=== PATIENT | female | born 2000 | race Caucasian/White ===

== ENCOUNTER 2023-09-09 21:23 | Emergency (ER) | payer OTHER, SELFPAY ==
[2023-09-09 21:28] VITALS: BP 112/78
[2023-09-09 22:07] LABS: % Basophils 0.4 % (0-2); % Eosinophils 4.2 % (0-6); % Immature Granulocytes 0.1 % (0-0.5); % Lymphocytes 28.2 % (20.5-51.1); % Monocytes 6.4 % (1.7-9.3); % Neutrophils 60.7 % (42.2-75.2); Absolute Eosinophils 0.4 10^3/uL (0-0.7); Absolute Lymphocytes 2.5 10^3/uL (1.2-3.4); Absolute Monocytes 0.6 10^3/uL (0.1-0.6); Absolute Neutrophils 5.4 10^3/uL (1.4-6.5); Hematocrit 39.8 % (37.0-47.0); Hemoglobin 13.7 g/dL (12.0-16.0); Mean Corp Hgb Conc. 34.4 g/dL (33.0-37.0); Mean Corpuscular Hgb 29.1 pg (27.0-31.0); Mean Corpuscular Volume 84.7 fL (81.0-99.0); Mean Platelet Volume 9.5 fL (7.4-10.4); Nucleated Red Blood Cells % 0 %; Platelet Count 302 10^3/uL (130-400); Red Cell Dist. Width 11.9 % (11.5-14.5); White Blood Cell Count 8.9 10^3/uL (4.8-10.8)
[2023-09-09 22:17] LABS: HCG, Serum Qualitative Screen Negative
[2023-09-09 22:26] LABS: ALT (SGPT) 26 U/L (0-35); AST (SGOT) 28 U/L (14-36); Albumin 4.6 g/dl (3.5-5.0); Alkaline Phosphatase 59 U/L (38-126); Blood Urea Nitrogen 8 mg/dl (7-17); Calcium 9.1 mg/dl (8.4-10.2); Carbon Dioxide 26 mmol/L (22-30); Chloride 104 mmol/L (98-107); Glucose 83 mg/dl (70-99); Potassium 3.7 mmol/L (3.5-5.1); Sodium 137 mmol/L (135-145); Total Bilirubin 0.4 mg/dl (0.2-1.3); Total Protein 7.8 g/dl (6.3-8.2); eGFR > 60.00
--- NOTE | 2023-09-10 00:56 | EDRN ---
Dr. Stephenson in at bedside going over results and plan
--- NOTE | 2023-09-10 01:10 | ED.GENMED ---
History of Present Illness
General
Chief Complaint: Abdominal Symptoms
Source: patient and family
Exam Limitations: none
Time Seen by Provider: 09/09/23 22:45
Nursing documentation reviewed up to this point in time: agreed with
Travel History
Have you had any contact with someone who has COVID-19?: No
Do you have any symptoms of coronavirus? Fever > 100 degrees, chills, cough, shortness of breath, sore throat, loss of taste or smell, muscle aches, or headache?: No
History of Present Illness
History of Present Illness:
Pleasant 22-year-old female that just returned from the [facility]. She started to have loose stools when she got home. Had 6 episodes of loose stools. She took Imodium and now the stools are hard and she has been constipated. She states
that when she does pass her bowels it is greenish continues though that color has been normalizing. She initially had a normal appetite but has been eating slightly less though She today was able to eat a somewhat normal meal. Denies fever,
chills, nausea or vomiting. Reports no chest pain or shortness of breath. Denies any abdominal pain.
Phy Exam
General Physical Exam
General Presentation: well appearing and no apparent distress
General Skin: warm and dry
General Habitus: normal
General Mental: alert
General Hydration: appears well hydrated
ENT Exam
ENT Exam: EOMI, pharynx normal, neck supple and normocephalic
Eye Exam
Eye Exam: PERRL, cornea clear and conjunctiva normal
Cardiovascular Exam
Cardiovascular Exam: regular rate/rhythm, no edema, no murmur and normal peripheral pulses
Pulmonary Exam
Pulmonary Exam: lungs clear, no respiratory distress, no rales, no crackles, no rhonchi, no stridor, no wheezing and no cough
Gastrointestinal Exam
Gastrointestinal Exam: normal bowel sounds, non tender, soft, no organomegaly, no pulsatile mass and non distended
Neurological Exam
Neurological Exam: alert, oriented x3, no motor deficits and speech normal
Musculoskeletal Exam
Musculoskeletal Exam: full ROM and no edema
Skin Exam
Skin Exam: normal color, warm/dry, no rash and no petechia
Psychiatric Exam
Psychiatric Exam: normal mood/affect
Course
Orders/Labs/Results
Orders:
Orders
09/09/23 21:44
Test Result ONCE
09/09/23 22:01
CMP [Comprehensive Metabolic Panel] Urgent
Complete Blood Count/With Diff Urgent
HCG, Serum Qualitative Screen Urgent
09/09/23 22:46
Stool for Occult Blood Routine
09/10/23 00:01
CR Abdomen - 1 View Urgent
Reason For Exam: abd pain
09/09/23 22:01
09/09/23 22:01
Vital Signs
Initial and Last Documented VS:
Initial Vital Signs
Temp Pulse Resp BP Pulse Ox
98.2 F 100 18 112/78 100
09/09/23 21:28 09/09/23 21:28 09/09/23 21:28 09/09/23 21:28 09/09/23 21:28
Last Documented Vital Signs
Temp Pulse Resp BP Pulse Ox
98.2 F 100 18 112/78 100
09/09/23 21:28 09/09/23 21:28 09/09/23 21:28 09/09/23 21:28 09/09/23 21:28
*Critical Care Note
Total Time (30-74mins, 75-104mins- exclusive of procedures): Not Applicable
ED Attending Note
-
Portions of this chart may have been created with voice recognition software.� Occasional wrong word or��sound alike� substitutions may have occurred due to the inherent limitations of voice recognition software.
Discharge Plan
Departure
Patient Disposition: Home (Routine Discharge)
Date of Disposition: 09/10/23
Time of Disposition: 01:10
Patient with high blood pressure during this ER visit?: Yes
Condition: Good
Discharge Problem:
Diarrhea
Instructions: Diarrhea in adolescents and adults, Clear Liquid Diet
Prescriptions:
No Action
No Current Medications
0
Referrals:
Alma Dupree MD [Family Provider] -
Stand Alone Forms: Back to School
Activity Restrictions/Additional Instructions:
Using the prescription provided, please bring stool samples to the lab
If symptoms persist, we may need to start antibiotics.
It was a pleasure meeting you and taking part in your care. We hope for your continued healing and wellness.
Please read discharge instructions in their entirety. However, they are for general education and may not describe your exact diagnosis at discharge. Information on your ER visit and medical conditions were discussed with you along with appropriate
follow up information...
If indicated, please take your medications as instructed and indicated on discharge paperwork.
Please schedule a follow up appointment as directed. Call to schedule an appointment
Please return to the emergency department with ANY change in, persisting, or worsening of symptoms. If any of your symptoms do not improve, or persist, or become more severe within 6-12 hours, please return to the emergency department for further
care.
Please return to the emergency department if you develop a headache, neck pain/stiffness, fever greater than 100.4F, chest pain, shortness of breath, persistent nausea, vomiting, slurred speech, difficulty walking, numbness/tingling, weakness, signs
of infection or any other symptoms that are worrisome to you.
If you have any questions or concerns please do not hesitate to call the Hospital at or E-mail me directly at [email or web address]
Interventions
Interventions:
*Risk Screen - Suicide Last Done: 09/09/23 21:28
*General Assessment Last Done: 09/10/23 01:21
*Neglect/Abuse Screening Last Done: 09/09/23 21:28
ED- Fall Risk Assessment Last Done: 09/10/23 00:52
*ED COVID-19 Vaccine History Last Done: 09/10/23 01:21
*Nursing Disposition Last Done: 09/10/23 01:21
UO-Fwngiq-Jgqgtygwca Assessment Last Done: 09/10/23 00:52
Discharge Date and Time
Discharge Date/Time: 09/10/23 01:21
== END 2023-09-10 01:21 | disposition home or self-care (01) ==
LOC: EMR 21:23
PROVIDERS: Emergency Medicine; EMERGENCY PHYSICIAN Student in an Organized Health Care Education/Training Program; FAMILY PHYSICIAN Internal Medicine
DX: R19.7 Diarrhea, unspecified (principal)
CPT/HCPCS: 99283; 74018; 80053; 84703; 85025

== ENCOUNTER → 2023-09-10 15:58 | Outpatient (REF) | payer OTHER, SELFPAY | LOC: REG 15:58 | PROVIDERS: ATTENDING PHYSICIAN Student in an Organized Health Care Education/Training Program; FAMILY PHYSICIAN Family Medicine | DX: A05.9 Bacterial foodborne intoxication, unspecified (principal) | CPT/HCPCS: 87328; 87329; 89055 ==

== ENCOUNTER → 2024-07-03 10:29 | Outpatient (REF) | payer OTHER, SELFPAY | LOC: RCS 10:29 | PROVIDERS: ATTENDING PHYSICIAN Registered Nurse | DX: F41.9 Anxiety disorder, unspecified (principal); R00.0 Tachycardia, unspecified | CPT/HCPCS: 93017 ==

== ENCOUNTER → 2024-07-04 12:51 | Outpatient (REF) | payer OTHER, SELFPAY | LOC: HWRCS 12:51 | PROVIDERS: ATTENDING PHYSICIAN Registered Nurse | DX: F41.9 Anxiety disorder, unspecified (principal); R00.0 Tachycardia, unspecified | CPT/HCPCS: 93306 ==

== ENCOUNTER → 2024-07-05 08:48 | Outpatient (REF) | payer OTHER, SELFPAY | LOC: RCS 08:48 | PROVIDERS: ATTENDING PHYSICIAN Registered Nurse | DX: F41.9 Anxiety disorder, unspecified (principal); R00.0 Tachycardia, unspecified | CPT/HCPCS: 93225; 93226 ==